=== PATIENT | female | born 1945 | race Two or more races ===

== ENCOUNTER 2017-12-19 14:15 | Outpatient (CLI) | payer OTHER | END 2017-12-19 14:24 | disposition home or self-care (01) | LOC: RAD 501 14:15 | DX: M15.0 Primary generalized (osteo)arthritis (principal); M10.09 Idiopathic gout, multiple sites ==

== ENCOUNTER 2020-02-24 23:16 | Emergency (ER) | payer OTHER ==
[~2020-02-24] VITALS: Ht 152.4 cm; Wt 81.2 kg
[2020-02-24] MEDS ORDERED: COZAAR50 MG (23:40)
[2020-02-24] MEDS ORDERED: TOPROL XL25 M1 (23:40)
[2020-02-24] MEDS ORDERED: FORTAMET500 MG (23:41)
[2020-02-24] MEDS ORDERED: SYNTHROID50 MCG (23:41)
== END 2020-02-25 02:26 | disposition home or self-care (01) ==
LOC: ER 23:16
DX: I10 Essential (primary) hypertension (principal)